=== PATIENT | female | born 1985 | race Caucasian/White ===

== ENCOUNTER 2020-02-15 11:46 | Emergency (ER) | payer SELFPAY ==
[~2020-02-15] VITALS: Ht 152.4 cm; Wt 99.8 kg
--- NOTE | 2020-02-15 11:46 | NUR ---
Patient BIBA ALS, transferred to bed 4. RN evaluating patient at bedside.
[2020-02-15 11:55] VITALS: BP 99/67
--- NOTE | 2020-02-15 11:55 | NUR ---
C/O 10/10 PAIN X AM LOW ABD PAIN, IVP PAIN MEDS GIVEN BY [facility]/FD-IV 20GA LT A/C IVP-FENTANYL 0.050MCG GIVEN FOR LT LOWER ABD PAIN AM WITH N/V/D HX- OVARIAN CYST, GALLBLADDER REMOVAL. SKIN IS INTACT, FLUSH/WARM/DRY; AAOX4, PERRL, UNSTEADY GAIT S/P PAIN; LUNGS CLEAR BL, BREATHING UNLABORED; HR EVEN AND REGULAR, BS ACTIVE X4, NO TENDERNESS TO PALPATION. PT DENIES ANY FEVER, CP, SOB, OR COUGH AT THIS TIME; PT STATES 10/10 PAIN AT THIS TIME; VSS; PATIENT POSITIONED FOR COMFORT; HOB ELEVATED; BEDRAILS UP X2; BED DOWN.
--- NOTE | 2020-02-15 12:15 | NUR ---
Dr. Cobos is evaluating the patient at bedside.
[2020-02-15] MEDS ORDERED: NACL 0.9% 1,000 ML IV SCH (12:18)
[2020-02-15] MEDS ORDERED: MORPHINE SULFATE 4 MG/ML SYR IVP ONE (12:20)
[2020-02-15] MEDS ORDERED: ONDANSETRON 4 MG/2 ML VIAL IVP ONE (12:20)
[2020-02-15] MEDS ORDERED: KETOROLAC 30 MG/ML VIAL IVP ONE ×2 (12:50→15:25)
[2020-02-15 12:55] LABS: BASOPHILS % (AUTO) 0.4 % (0.0-2.0); EOSINOPHILS % (AUTO) 0.3 % (0.0-4.0); HEMATOCRIT 38.5 % (36-48); HEMOGLOBIN 12.4 g/dL (12.0-16.0); LYMPHOCYTES # (AUTO) 0.7 K/uL (2.5-16.5); LYMPHOCYTES % (AUTO) 6.3 % (20.5-51.1); MEAN CORPUSCULAR HEMOGLOBIN 25 pg (27-31); MEAN CORPUSCULAR HGB CONC 32 g/dL (33-37); MEAN CORPUSCULAR VOLUME 78.7 fL (80-94); MONOCYTES # (AUTO) 0.2 K/uL (0.8-1.0); MONOCYTES % (AUTO) 2.3 % (1.7-9.3); NEUTROPHILS # (AUTO) 9.5 K/uL (1.8-7.7); NEUTROPHILS % (AUTO) 90.7 % (42.2-75.2); PLATELET COUNT (AUTO) 351 K/uL (140-450); RED CELL DISTRIBUTION WIDTH 16.1 % (11.6-13.7); WHITE BLOOD COUNT (AUTO) 10.4 K/uL (4.8-10.8)
[2020-02-15 13:14] LABS: ALBUMIN 4.2 g/dL (3.4-5.0); CARBON DIOXIDE 27.8 mmol/L (21-32); CREATININE 1.2 mg/dL (0.6-1.3); POTASSIUM 3.8 mmol/L (3.5-5.1); TOTAL BILIRUBIN 0.9 mg/dL (0.0-1.0)
--- NOTE | 2020-02-15 13:32 | NUR ---
PT TAKEN TO CT.
--- NOTE | 2020-02-15 14:10 | NUR ---
PT'S MOTHER; SAINT CHARLES [phone]
[2020-02-15 15:03] LABS: APPEARANCE,URINE CLEAR (CLEAR); BILIRUBIN,URINE NEGATIVE (NEGATIVE); BLOOD, URINE 3+ (NEGATIVE); COLOR,URINE DARK YELLOW (YELLOW); LEUKOCYTE ESTERASE ,URINE NEGATIVE (NEGATIVE); NITRITE, URINE NEGATIVE (NEGATIVE); UGLUCOSE NEGATIVE (NEGATIVE)
[2020-02-15 15:15] LABS: RBC,URINE 20-50 /HPF (0-5); WBC,URINE 0-5 /HPF (0-5)
[2020-02-15] MEDS ORDERED: MORPHINE SULFATE 2 MG/ML SYR IVP ONE (15:25)
--- NOTE | 2020-02-15 16:33 | NUR ---
Dr. Francis is evaluating the patient at bedside.
--- NOTE | 2020-02-15 16:41 | NUR ---
Patient discharged with v/s stable. Written and verbal after care instructions given and explained. Patient alert, oriented and verbalized understanding of instructions. Ambulatory with steady gait. All questions addressed prior to discharge. ID band removed. Patient advised to follow up with PMD. Rx of NAPROSYN, NORCO & ZOFRAN given. Patient educated on indication of medication including possible reaction and side effects. Opportunity to ask questions provided and answered.
[2020-02-15 16:43] VITALS: BP 105/61
--- NOTE | 2020-02-16 07:42 | NUR ---
late entry: left pt a voicemail to return call to [facility]. pt left ID here.
== END 2020-02-15 16:41 | disposition home or self-care (01) ==
LOC: MED 11:46
DX: N83.209 Unspecified ovarian cyst, unspecified side (principal); N23 Unspecified renal colic; R11.2 Nausea with vomiting, unspecified; R19.7 Diarrhea, unspecified; Z90.49 Acquired absence of other specified parts of digestive tract
CPT/HCPCS: 36415; 74177; 76856; 80053; 81001; 81025; 84702; 85025; 93976; 96361; 96374; 96375; 96376; 99291; J1885; J2270; J2405; J7030; Q0092; Q9967